=== PATIENT | male | born 1955 | race Caucasian/White ===

== ENCOUNTER 2022-11-22 11:10 | Emergency (ER) | payer BC, MEDICARE ==
[2022-11-22] MEDS ORDERED: Boostrix 0.5 ML (Tdap) VIAL (>/=7 yrs of age) ONE (11:34)
[2022-11-22] MEDS ORDERED: Lidocaine 2% w/Epinephrine 1:200K 20 ML VIAL ONE (11:42)
== END 2022-11-22 12:39 | disposition home or self-care (01) ==
LOC: BURERS 11:10
DX: S61.412A Laceration without foreign body of left hand, initial encounter (principal); I10 Essential (primary) hypertension; W29.8XXA Contact with other powered hand tools and household machinery, initial encounter; Z23 Encounter for immunization
CPT/HCPCS: 12004; 90471; 90715

== ENCOUNTER 2023-09-13 17:53 | Emergency (ER) | payer BC ==
[~2023-09-13 17:53] MED LIST: Iopamidol 370 76% 100 ML VIAL ONE
[2023-09-13] MEDS ORDERED: hydrALAZINE 20 MG/ML VIAL ONE (18:11)
[2023-09-13 18:15] LABS: #Basophils 0.1 thou/uL (0.0-0.2); #Eosinphils 0.3 thou/uL (0.0-0.7); #Lymphocytes 2.4 thou/uL (1.20-3.40); #Monocytes 0.8 thou/uL (0.11-0.59); #Neutrophils 4.4 thou/uL (1.40-6.50); %Basophils 1.6 % (0.0-1.0); %Eosinophils 3.7 % (0.0-10.0); %Lymphocytes 29.8 % (21.0-51.0); %Monocytes 10.4 % (0.0-10.0); %Neutrophils 54.5 % (42.0-75.0); Hematocrit 49.1 % (42.0-52.0); Hemoglobin 16.1 g/dL (14.0-18.0); Mean Corpuscular HGB CONC 32.8 g/dL (32.0-36.0); Mean Corpuscular Hemoglobin 30.6 pg (27.0-31.0); Mean Corpuscular Volume 93.4 fl (78.0-98.0); Mean Platelet Volume 6.6 fL (7.4-10.4); Platelet Count 272 10x3/uL (130-400); RBC Distribution Width 12.5 % (11.5-14.5); Red Blood Cell (RBC) Count 5.25 mill/uL (4.70-6.10)
[2023-09-13] MEDS ORDERED: Aspirin Chewable 81 MG TAB ONE (18:17)
[2023-09-13 18:32] LABS: Troponin I 0.023 ng/mL (< 0.028)
[2023-09-13] MEDS ORDERED: Ondansetron PF 4 MG/2 ML Vial ONE (18:32)
[2023-09-13 18:33] LABS: ALT (SGPT) 17 U/L (8-55); AST (SGOT) 16 U/L (5-34); Albumin 4.1 g/dL (3.4-4.8); Alkaline Phosphatase 72 U/L (40-110); Anion Gap 14 mmol/L (10-20); BUN (Urea Nitrogen) 17 mg/dL (8.4-25.7); Bilirubin, Total 0.5 mg/dL (0.2-1.2); Calc. Creatinine Clearance 0 mL/min (70-130); Calcium 9.2 mg/dL (7.8-10.44); Carbon Dioxide 21 mmol/L (23-31); Chloride 107 mmol/L (98-107); Estimated GFR 68; Globulin 3.3 g/dL (2.4-3.5); Glucose 111 mg/dL (80-115); Lipase 55 U/L (8-78); Magnesium 1.9 mg/dL (1.6-2.6); Potassium 4.2 mmol/L (3.5-5.1); Protein, Total 7.4 g/dL (5.8-8.1); Sodium 138 mmol/L (136-145)
[2023-09-13] MEDS ORDERED: Losartan 25 MG TAB ONE ×2 (21:00→21:04)
[2023-09-13 21:20] LABS: Troponin I 0.011 ng/mL (< 0.028)
[2023-09-13] MEDS ORDERED: Morphine 4 MG/ML VIAL ONE (22:12)
== END 2023-09-13 23:30 | disposition other institution (70) ==
LOC: BURERS 17:53
DX: R07.9 Chest pain, unspecified (principal); K80.20 Calculus of gallbladder without cholecystitis without obstruction; R10.13 Epigastric pain; I10 Essential (primary) hypertension
CPT/HCPCS: 71045; 71275; 80053; 83690; 83735; 83880; 84484; 85025; 85379; 93005; 96374; 96375; 96376; J0360; J2270; J2405; Q9967